=== PATIENT | female | born 1995 | race Caucasian/White ===

== ENCOUNTER 2017-05-17 13:45 | Emergency (ER) | payer BC ==
[2017-05-17 13:46] VITALS: BP 118/74; PULSE 70; RESP 15; TEMP 97.8; O2SAT 99
--- NOTE | 2017-05-17 15:46 | RADRPT ---
EXAM DATE/TIME: 05/17/2017 15:26 [place] COMPARISON: No previous studies available for comparison. INDICATIONS : Right clavicle pain post fall. MEDICAL HISTORY : None. SURGICAL HISTORY : None. ENCOUNTER: Initial ACUITY: 1 day PAIN SCORE: 10/10 LOCATION: Right shoulder FINDINGS: Two view examination of the right clavicle demonstrates a fracture through the mid diaphysis with cep halad angulation of the fracture fragments. CONCLUSION: Mid diaphyseal right clavicular fracture. Ronald Alberto MD on May 17, 2017 at 15:43 Board Certified Radiologist. This report was verified electronically.
[2017-05-17] MEDS ORDERED: PERC5TAB12 PO (16:08)
[2017-05-17] MEDS ORDERED: oxyCODONE/ACETAMINOPHEN 5 MG/325 MG TAB PO ONE (16:15)
--- NOTE | 2017-05-17 16:35 | PD ---
HPI Chief Complaint: Injury Time Seen by Provider: 15:35 Travel History International Travel<30 days: No Contact w/Intl Traveler<30days: No Traveled to known affect area: No History of Present Illness HPI The patient was seen and examined in the presence of the nurse. This patient dove after her cat and hit the ground with her right shoulder. She complains of pain in her right clavicle. Duration 2 hours. Severity is moderate. Worse with movement. No shortness of breath PFSH Past Medical History Medical History: Denies Significant Hx ?: Not LMP: 05/03/17 Social History Alcohol Use: No Tobacco Use: Yes (vape) Substance Use: No Allergies-Medications (Allergen,Severity, Reaction): Coded Allergies: Doxycycline (Verified Allergy, Unknown, 05/17/17) Reported Meds & Prescriptions Reported Meds & Active Scripts Active Percocet (Oxycodone-Acetaminophen) 5-325 mg Tab 1 Tab PO Q6H PRN Review of Systems General / Constitutional: No: Fever HENT: No: Headaches Cardiovascular: No: Chest Pain or Discomfort Physical Exam Narrative RESPIRATORY: Respiratory effort unlabored, no retractions or use of accessory muscles. Breath sounds are clear and symmetric. CARDIOVASCULAR: Regular rate and rhythm without murmur. Extremities showed no edema or varicosities. Chest wall: Patient has an obvious step-off deformity in the mid right clavicle but no bruising Data Data Last Documented VS Vital Signs Date Time Temp Pulse Resp B/P Pulse Ox O2 Delivery O2 Flow Rate FiO2 05/17/17 13:46 97.8 70 15 118/74 99 Orders Clavicle (05/17/17 ) Oxycodone-Acetamin 5-325 Mg (Percocet (05/17/17 16:15) Splint Or Brace Apply/Monitor (05/17/17 16:08) MDM Medical Decision Making Medical Screen Exam Complete: Yes Emergency Medical Condition: Yes Medical Record Reviewed: Yes Differential Diagnosis Clavicle fracture, shoulder dislocation, rib fracture Narrative Course I have reviewed the patient's electronic medical record. I reviewed her right clavicle x-rays which reveal a midshaft right clavicle fracture somewhat displaced I placed her in a right sling I gave HER-2 pain pills here I wrote prescription for pain medicine She should wear the sling and ice the area and follow-up with orthopedist Diagnosis Primary Impression: Closed right clavicular fracture Qualified Code: S42.021A - Closed displaced fracture of shaft of right clavicle, initial encounter Additional Instructions: The patient was advised to follow up with orthopedist Wear sling Apply ice to right clavicle The patient was warned about potential sedation for the medications they will receive on prescription. Med/Other Pt SpecificInfo: Prescription(s) given Scripts Oxycodone-Acetaminophen (Percocet)5-325 mg Tab1 Tab PO Q6H PRN (PAIN) #25 TAB Ref 0 Prov:Nelson Cantu MD 05/17/17 Disposition: DISCHARGE HOME Condition: Stable Nelson Cantu MD May 17, 2017 16:35
== END 2017-05-17 17:12 | disposition home or self-care (01) ==
LOC: NEPD 13:45
DX: S42.021A Displaced fracture of shaft of right clavicle, initial encounter for closed fracture (principal); W18.00XA Striking against unspecified object with subsequent fall, initial encounter
CPT/HCPCS: 73000; 99283